=== PATIENT | female | born 1995 | race Caucasian/White ===

== ENCOUNTER 2016-05-31 00:50 | Emergency (ER) | payer SELFPAY ==
[~2016-05-31] VITALS: Ht 152.4 cm; Wt 109.5 kg
[~2016-05-31 00:50] MED LIST: BACTRIM,SEPT1 TABLET PO; CLINDAMYCIN HC300 MG PO; NAPROSYN500 MG PO
[2016-05-31 01:39] LABS: CHLORIDE 108 mEq/L (99-109); POTASSIUM 4.3 mEq/L (3.7-5.4); SODIUM 140 mEq/L (136-147)
[2016-05-31 01:41] LABS: GLUCOSE 99 mg/dL (70-99)
[2016-05-31 01:42] LABS: ANION GAP 8 MEQ/L (2-14)
[2016-05-31 01:44] LABS: GFR ESTIMATE (CALCULATED) > 59 mL/min/
[2016-05-31 01:45] LABS: EOSINOPHIL (%) 1.9 % (0-5); EOSINOPHIL COUNT 0.1 K/uL (0-0.3); HEMATOCRIT 34.5 % (36.0-46.0); IMMATURE GRANULOCYTE (%) 0.1 % (0.0-0.7); INSTRUMENT ABS NEUTROPHIL CT 4.6 K/uL; LYMPHOCYTE COUNT 2.2 K/uL (1.0-2.8); MCH 21.6 PG (29.0-34.0); MCHC 29.6 G/DL (30.0-36.0); MCV 73.1 FL (83-99); MEAN PLAT.VOLUME 9.5 uM^3 (9.5-12.4); MONOCYTE (%) 4.5 % (3-12); MONOCYTE COUNT 0.3 K/uL (0-0.8); NEUTROPHIL (%) 62.6 % (45-76); NEUTROPHIL COUNT 4.6 K/uL (1.8-6.4); PLATELET COUNT 300 K/uL (156-360); RBC DIS.WIDTH-CV 18.5 % (11.8-14.6); RBC DIS.WIDTH-SD 48.9 % (39-53); RED BLOOD COUNT 4.72 M/uL (3.80-5.20); WHITE BLOOD COUNT 7.3 K/uL (4.1-10.2)
[2016-05-31 01:45] LABS: UREA NITROGEN (BUN) 8 mg/dL (9-23)
[2016-05-31 01:53] LABS: QUANTITATIVE HCG < 4.0 MIU/ML
[2016-05-31 02:47] VITALS: BP 110/55
[2016-05-31 03:45] LABS: IRON 25 MCG/DL (35-150); SAMPLE HEMOLYSIS CHECK 0; SAMPLE ICTERIC CHECK 0; SAMPLE LIPEMIA CHECK 0
[2016-05-31 08:37] LABS: FERRITIN 3 NG/ML (10-291)
== END 2016-05-31 02:40 | disposition home or self-care (01) ==
LOC: EME 00:50
PROVIDERS: Emergency Medicine
PROC: 0HQGXZZ Repair Left Hand Skin, External Approach (ICD-10-PCS; principal; 2016-05-31)
DX: S61.217A Laceration without foreign body of left little finger without damage to nail, initial encounter (principal); R42 Dizziness and giddiness; D64.9 Anemia, unspecified; W45.8XXA Other foreign body or object entering through skin, initial encounter
CPT/HCPCS: 80048; 82728; 83540; 84466; 84702; 85025; 99281; 99284

== ENCOUNTER 2016-08-20 06:36 | Emergency (ER) | payer SELFPAY ==
[~2016-08-20] VITALS: Ht 160 cm; Wt 110.0 kg
[2016-08-20] MEDS ORDERED: MOTRIN800 MG PO (07:15)
[2016-08-20] MEDS ORDERED: NORCO 5/3251 TABLET PO (07:15)
[2016-08-20 07:46] VITALS: BP 119/69
== END 2016-08-20 07:47 | disposition home or self-care (01) ==
LOC: EME 06:36
PROC: 0U9LXZZ Drainage of Vestibular Gland, External Approach (ICD-10-PCS; principal; 2016-08-20)
DX: N75.1 Abscess of Bartholin's gland (principal); F17.200 Nicotine dependence, unspecified, uncomplicated
CPT/HCPCS: 81003; 99281; 99283

== ENCOUNTER 2016-11-30 01:04 | Emergency (ER) | payer OTHER ==
[~2016-11-30] VITALS: Ht 152.4 cm; Wt 113.9 kg
[~2016-11-30 01:04] MED LIST changes: +MOTRIN800 MG PO; +NORCO 5/3251 TABLET PO
[2016-11-30 02:19] LABS: EOSINOPHIL (%) 2.1 % (0-5); EOSINOPHIL COUNT 0.1 K/uL (0-0.3); HEMATOCRIT 31.8 % (36.0-46.0); IMMATURE GRANULOCYTE (%) 0.1 % (0.0-0.7); INSTRUMENT ABS NEUTROPHIL CT 3.5 K/uL; LYMPHOCYTE COUNT 2.7 K/uL (1.0-2.8); MCH 21.2 PG (29.0-34.0); MCHC 29.6 G/DL (30.0-36.0); MCV 71.6 FL (83-99); MEAN PLAT.VOLUME 9.8 uM^3 (9.5-12.4); MONOCYTE (%) 6.5 % (3-12); MONOCYTE COUNT 0.4 K/uL (0-0.8); NEUTROPHIL (%) 51.3 % (45-76); NEUTROPHIL COUNT 3.5 K/uL (1.8-6.4); PLATELET COUNT 281 K/uL (156-360); RBC DIS.WIDTH-CV 16.5 % (11.8-14.6); RBC DIS.WIDTH-SD 42.5 % (39-53); RED BLOOD COUNT 4.44 M/uL (3.80-5.20); WHITE BLOOD COUNT 6.8 K/uL (4.1-10.2)
[2016-11-30 02:34] LABS: ADD MIUA? NO; BILIRUBIN NEGATIVE; BLOOD NEGATIVE; COLOR STRAW ((YELLOW)); GLUCOSE (STRIP) NEGATIVE; KETONES NEGATIVE; LEUKOCYTES NEGATIVE; NITRITE NEGATIVE; PROTEIN (STRIP) NEGATIVE; UROBILINOGEN 0.2 MG/DL (0.2-1.0)
[2016-11-30] MEDS ORDERED: INDOCIN50 MG PO (03:01)
[2016-11-30 03:18] VITALS: BP 126/95
== END 2016-11-30 03:20 | disposition home or self-care (01) ==
LOC: EME 01:04
PROVIDERS: Emergency Medicine
DX: R10.30 Lower abdominal pain, unspecified (principal); D64.9 Anemia, unspecified; F17.200 Nicotine dependence, unspecified, uncomplicated
CPT/HCPCS: 81003; 84702; 85025; 99281; 99284

== ENCOUNTER 2017-09-05 20:17 | Emergency (ER) | payer OTHER ==
[~2017-09-05] VITALS: Ht 152.4 cm; Wt 117.0 kg
[~2017-09-05 20:17] MED LIST changes: +INDOCIN50 MG PO
[2017-09-05 21:29] LABS: APPEARANCE SL.HAZY ((CLEAR)); BILIRUBIN NEGATIVE; BLOOD MODERATE; COLOR YELLOW ((YELLOW)); GLUCOSE (STRIP) NEGATIVE; KETONES NEGATIVE; LEUKOCYTES LARGE; NITRITE NEGATIVE; PROTEIN (STRIP) NEGATIVE; SPECIFIC GRAVITY 1.006 (1.000-1.030); UROBILINOGEN 0.2 MG/DL (0.2-1.0)
[2017-09-05 21:36] LABS: BASOPHIL (%) 0.4 % (0-1); CHLORIDE 106 mEq/L (99-109); EOSINOPHIL (%) 1.3 % (0-5); EOSINOPHIL COUNT 0.2 K/uL (0-0.3); HEMATOCRIT 33.7 % (36.0-46.0); HEMOGLOBIN 10.1 G/DL (11.9-15.5); IMMATURE GRANULOCYTE (%) 0.4 % (0.0-0.7); LYMPHOCYTE (%) 28.2 % (15-42); LYMPHOCYTE COUNT 3.2 K/uL (1.0-2.8); MCH 20.7 PG (29.0-34.0); MCV 69.2 FL (83-99); MONOCYTE (%) 4.5 % (3-12); MONOCYTE COUNT 0.5 K/uL (0-0.8); NEUTROPHIL (%) 65.2 % (45-76); NEUTROPHIL COUNT 7.4 K/uL (1.8-6.4); PLATELET COUNT 336 K/uL (156-360); POTASSIUM 4.1 mEq/L (3.7-5.4); RBC DIS.WIDTH-CV 18.1 % (11.8-14.6); RBC DIS.WIDTH-SD 43.6 % (39-53); RED BLOOD COUNT 4.87 M/uL (3.80-5.20); SODIUM 141 mEq/L (136-147); WHITE BLOOD COUNT 11.4 K/uL (4.1-10.2)
[2017-09-05 21:43] LABS: GLUCOSE 90 mg/dL (70-99)
[2017-09-05 21:47] LABS: CREATININE 0.8 mg/dL (0.6-1.3); GFR ESTIMATE (CALCULATED) > 59 mL/min/
[2017-09-05 21:48] LABS: UREA NITROGEN (BUN) 9 mg/dL (9-23)
[2017-09-05 21:50] LABS: QUANTITATIVE HCG < 4.0 MIU/ML
[2017-09-05 21:55] LABS: BACTERIA RARE /HPF; EPITHELIAL CELLS 2+ /HPF; MUCUS TRACE /LPF; UCUL ADDED? YES; WHITE BLOOD CELLS 20-30 /HPF (0-5)
[2017-09-05 21:56] LABS: MAGNESIUM 2.2 mg/dL (1.3-2.7)
[2017-09-05] MEDS ORDERED: BACTRIM,SEPT1 TABLET PO (22:38)
[2017-09-05 22:58] VITALS: BP 130/85
== END 2017-09-05 23:00 | disposition home or self-care (01) ==
LOC: EME 20:17
PROVIDERS: Emergency Medicine
PROC: 0H98XZZ Drainage of Buttock Skin, External Approach (ICD-10-PCS; principal; 2017-09-05)
DX: R42 Dizziness and giddiness (principal); R55 Syncope and collapse; E86.0 Dehydration; N39.0 Urinary tract infection, site not specified; L02.32 Furuncle of buttock; F17.200 Nicotine dependence, unspecified, uncomplicated
CPT/HCPCS: 80048; 81003; 83735; 84702; 85025; 87086; 93005; 99281; 99284; J7040